=== PATIENT | male | born 1960 | race Caucasian/White ===

== ENCOUNTER 2016-11-28 11:55 | Observation (INO) ==
--- NOTE | 2016-11-28 12:52 | Emergency Department Note ---
Disposition Clinical Impression: Stroke Qualifiers: CVA mechanism: unspecified Qualified Code(s): I63.9 - Cerebral infarction, unspecified Disposition: Admitted As Inpatient Condition: Good General Adult HPI - General Chief complaint: ED Neuro Symptoms/Deficit Stated complaint: N/T to R side of Face Time Seen by Provider: 11/28/16 12:17 Source: patient, family Limitations: no limitations Nursing Notes Reviewed: Yes Vital Signs Reviewed: Yes - History of Present Illness Pain Scale: 0 - Related Data Home Medications Medication Instructions Recorded Confirmed Albuterol Sulfate [Albuterol 2 puff IH Q4HR PRN 04/15/15 11/28/16 Inhaler] Alprazolam [Xanax] 0.5 mg PO BID PRN 04/15/15 11/28/16 Cholecalciferol (Vitamin D3) 1,000 unit PO QAM 04/15/15 11/28/16 [Vitamin D] Gabapentin [Neurontin] 300 mg PO HS 04/15/15 11/28/16 Krill Oil/[place]-3/Dha/Epa [Fish 1 each PO DAILY 04/15/15 11/28/16 Oil with Krill Softgel] Lisinopril [Zestril] 5 mg PO QAM 04/15/15 11/28/16 Nitroglycerin [Nitrostat] 0.4 mg SL AD PRN 04/15/15 11/28/16 Tiotropium [Spiriva] 18 mcg IH QAM 04/15/15 11/28/16 Ubidecarenone [Co Q-10] 100 mg PO QAM 04/15/15 11/28/16 Albuterol Neb [AccuNeb] 0.63 mg IH Q6H PRN 11/28/16 11/28/16 Atorvastatin [Lipitor] 10 mg PO HS 11/28/16 11/28/16 Fenofibrate Nanocrystallized 145 mg PO DAILY 11/28/16 11/28/16 [Tricor] Fluticasone Propionate Nasal 2 spray NS DAILY 11/28/16 11/28/16 [Flonase] Insulin ASPART [NovoLOG] 35 unit SQ TIDWM 11/28/16 11/28/16 Meclizine HCl [Verticalm] 25 mg PO Q8H PRN 11/28/16 11/28/16 Multivitamin [Multi-Day Vitamins] 1 tab PO DAILY 11/28/16 11/28/16 Venlafaxine HCl [Venlafaxine HCl 37.5 mg PO DAILY 11/28/16 11/28/16 ER] Previous Rx's Medication Instructions Recorded Aspirin Enteric Coated [Aspirin EC] 81 mg PO DAILY #30 tablet.dr 04/19/15 Clopidogrel [Plavix] 75 mg PO QAM #30 tablet 04/19/15 Insulin DETEMIR [Levemir] 40 unit SQ BID #0 04/19/15 Isosorbide MONOnitrate (24 HR) 120 mg PO DAILY 30 Days 04/19/15 [Imdur] Metoprolol XL (24 HR) Succ [Toprol 100 mg PO DAILY 30 Days 04/19/15 XL] Pantoprazole Sodium [Protonix] 40 mg PO DAILY 30 Days 04/19/15 Ranolazine [Ranexa] 500 mg PO BID #60 tab.er.12h 04/19/15 Allergies Allergy/AdvReac Type Severity Reaction Status Date / Time atorvastatin [From Lipitor] AdvReac See Verified 04/15/15 13:06 Comments Past Medical History - Past Medical History Medical history: Reports: COPD, coronary artery disease, CVA, diabetes, hyperlipidemia, hypertension, myocardial infarction Surgical history: Reports: appendectomy, coronary bypass (CABG), herniorrhaphy, other Psychiatric history: Reports: no psych history - Social History Smoking Status: Never smoker Smokeless Tobacco Status: No Alcohol use: Reports: none Drug use: Reports: none Physical Exam - General Limitations: no limitations General appearance: alert, in no apparent distress Course Vital Signs Temperature 98.5 F 11/28/16 12:12 Pulse Rate 77 11/28/16 12:12 Respiratory Rate 16 11/28/16 12:12 Blood Pressure 143/80 11/28/16 12:12 O2 Sat by Pulse Oximetry 94 11/28/16 12:12 Temperature 98.5 F 11/28/16 12:12 Pulse Rate 74 11/28/16 13:36 Respiratory Rate 14 11/28/16 13:36 Blood Pressure 134/77 11/28/16 13:36 O2 Sat by Pulse Oximetry 94 11/28/16 13:36 Oxygen Delivery Oxygen Delivery Room Air Medical Decision Making - MDM Narrative Medical decision making narrative: I examined this patient and my medical decision-making was reviewed with the MINCEME[employer] MAKER/PA/Advanced Practice Nurse/Resident Physician. I agree with the documented findings, disposition and treatment plan as described except to the extent set forth below. Patient was seen and evaluated on arrival by Dr. Pimentel and myself, I agree with his evaluation and management plan, supervised the care of the patient outstay. Patient said 3 days of right-sided numbness and tingling to the face has a minimal droop there. He stays a TIA in the past. Question whether this is a TIA versus a palsy, he has no chest pain no other weakness no vision change no hearing changes no other neuro deficits. We will order a CT and labs and then reassess. He is in agreement with this plan. Head CT 11/28/16 12:18 IMPRESSION: No acute intracranial abnormality. D/ / Hardeep Scott MD / Hardeep Scott MD Interpreting Provider: Hardeep Scott MD 1305 hrs.: Bring him into the hospital for TIA workup. Now he is determining whether he wants stay in the hospital or not. We discussed risks and benefits of staying in the hospital versus going home he is reconsidering if he wants to stay or go home we have advised him to be admitted and have answered all his questions. 1400 hrs.: Patient's decided to stay in the hospital and hospitalist's accepted patient for admission. Right-sided facial weakness and numbness rule out TIA. - Lab Data Result diagrams: 11/28/16 12:59 11/28/16 12:59 Lab Results 11/28/16 11/28/16 Range/Units 12:59 12:59 WBC 7.4 (4.3-11.1) K/mcL RBC 5.79 H (4.19-5.50) M/mcL Hgb 16.0 (12.9-16.9) g/dL Hct 48.4 (37.5-50.1) % MCV 83.6 (83.0-100.0) fL MCH 27.6 L (28.0-33.3) pg MCHC 33.1 (31.6-35.5) g/dL RDW 13.2 (11.5-14.5) % Plt Count 193 (140-400) K/mcL MPV 10.6 (9.4-12.4) fL Immature Gran % 0.8 (0-4) % Seg Neutrophils % 61.3 % Lymphocytes % 26.9 % Monocytes % 6.0 % Eosinophils % 3.8 % Basophils % 1.2 % Neutrophils # 4.5 (1.6-8.9) K/mcL Lymphocytes # 2.0 (0.6-4.6) K/mcL Monocytes # 0.4 (0.0-1.3) K/mcL Eosinophils # 0.3 (0.0-0.6) K/mcL Basophils # 0.1 (0.0-0.2) K/mcL Immature Plt Fraction 4.9 (1.1-6.1) % Sodium 136 (136-145) mEq/L Potassium 4.6 H (3.5-4.5) mEq/L Chloride 102 (98-109) mEq/L Carbon Dioxide 22 (19-29) mEq/L BUN 19 (8-26) mg/dL Creatinine 1.27 H (0.72-1.25) mg/dL Est GFR ( Amer) > 60 (> 60) Est GFR (Non-Af Amer) 58 L (> 60) BUN/Creatinine Ratio 15 (6-26) Glucose 325 H (70-99) mg/dL Calculated Osmolality 297 (280-300) Calcium 9.3 (8.6-10.8) mg/dL
[2016-11-28 13:07] LABS: Basophils # 0.1 K/mcL (0.0-0.2); Basophils % 1.2 %; Eosinophils # 0.3 K/mcL (0.0-0.6); Eosinophils % 3.8 %; Hematocrit 48.4 % (37.5-50.1); Immature Granulocytes % 0.8 % (0-4); Immature Platelets 4.9 % (1.1-6.1); Lymphocytes % 26.9 %; Mean Corpuscular HGB Conc 33.1 g/dL (31.6-35.5); Mean Corpuscular Hemoglobin 27.6 pg (28.0-33.3); Mean Corpuscular Volume 83.6 fL (83.0-100.0); Mean Platelet Volume 10.6 fL (9.4-12.4); Monocytes # 0.4 K/mcL (0.0-1.3); Neutrophils # 4.5 K/mcL (1.6-8.9); Platelet Count 193 K/mcL (140-400); Red Blood Count 5.79 M/mcL (4.19-5.50); Red Cell Distribution Width 13.2 % (11.5-14.5); Segmented Neutrophils % 61.3 %
[2016-11-28 13:19] LABS: BUN/Creatinine Ratio 15 (6-26); Blood Urea Nitrogen 19 mg/dL (8-26); Calcium 9.3 mg/dL (8.6-10.8); Carbon Dioxide 22 mEq/L (19-29); Chloride 102 mEq/L (98-109); Glucose 325 mg/dL (70-99); Osmolality,Calculated 297 (280-300); Potassium 4.6 mEq/L (3.5-4.5); Sodium 136 mEq/L (136-145); eGFR For African Americans > 60 (> 60); eGFR For Non-African Americans 58 (> 60)
--- NOTE | 2016-11-28 13:21 | Emergency Department Note ---
Disposition Clinical Impression: Stroke Qualifiers: CVA mechanism: unspecified Qualified Code(s): I63.9 - Cerebral infarction, unspecified Disposition: Admitted As Inpatient Condition: Good Neuro HPI - General Chief Complaint: ED Neuro Symptoms/Deficit Stated Complaint: N/T to R side of Face Time Seen by Provider: 11/28/16 12:17 Source: patient, family Limitations: no limitations Nursing Notes Reviewed: Yes Vital Signs Reviewed: Yes - History of Present Illness HPI Narrative: Patient with past medical history of coronary artery disease, CVA, COPD, diabetes presents for evaluation of right-sided facial droop as well as right- sided facial numbness. Patient has had previous CVAs in the past that has left him with no deficits. Patient was being evaluated in the cardiology office by Dr. Morton when the symptoms were noted and the patient was transferred for further evaluation. Patient states symptoms started last night at approximately 5 PM. Patient is outside the window of any type of interventional management. - Related Data Home Medications: Home Medications Medication Instructions Recorded Confirmed Albuterol Sulfate [Albuterol 2 puff IH Q4HR PRN 04/15/15 11/28/16 Inhaler] Alprazolam [Xanax] 0.5 mg PO BID PRN 04/15/15 11/28/16 Cholecalciferol (Vitamin D3) 1,000 unit PO QAM 04/15/15 11/28/16 [Vitamin D] Gabapentin [Neurontin] 300 mg PO HS 04/15/15 11/28/16 Krill Oil/[place]-3/Dha/Epa [Fish 1 each PO DAILY 04/15/15 11/28/16 Oil with Krill Softgel] Lisinopril [Zestril] 5 mg PO QAM 04/15/15 11/28/16 Nitroglycerin [Nitrostat] 0.4 mg SL AD PRN 04/15/15 11/28/16 Tiotropium [Spiriva] 18 mcg IH QAM 04/15/15 11/28/16 Ubidecarenone [Co Q-10] 100 mg PO QAM 04/15/15 11/28/16 Albuterol Neb [AccuNeb] 0.63 mg IH Q6H PRN 11/28/16 11/28/16 Atorvastatin [Lipitor] 10 mg PO HS 11/28/16 11/28/16 Fenofibrate Nanocrystallized 145 mg PO DAILY 11/28/16 11/28/16 [Tricor] Fluticasone Propionate Nasal 2 spray NS DAILY 11/28/16 11/28/16 [Flonase] Insulin ASPART [NovoLOG] 35 unit SQ TIDWM 11/28/16 11/28/16 Meclizine HCl [Verticalm] 25 mg PO Q8H PRN 11/28/16 11/28/16 Multivitamin [Multi-Day Vitamins] 1 tab PO DAILY 11/28/16 11/28/16 Venlafaxine HCl [Venlafaxine HCl 37.5 mg PO DAILY 11/28/16 11/28/16 ER] Previous Rx's Medication Instructions Recorded Aspirin Enteric Coated [Aspirin EC] 81 mg PO DAILY #30 tablet. 04/19/15 Clopidogrel [Plavix] 75 mg PO QAM #30 tablet 04/19/15 Insulin DETEMIR [Levemir] 40 unit SQ BID #0 04/19/15 Isosorbide MONOnitrate (24 HR) 120 mg PO DAILY 30 Days 04/19/15 [Imdur] Metoprolol XL (24 HR) Succ [Toprol 100 mg PO DAILY 30 Days 04/19/15 XL] Pantoprazole Sodium [Protonix] 40 mg PO DAILY 30 Days 04/19/15 Ranolazine [Ranexa] 500 mg PO BID #60 tab.er.12h 04/19/15 Allergies/Adverse Reactions: Allergies Allergy/AdvReac Type Severity Reaction Status Date / Time atorvastatin [From Lipitor] AdvReac See Verified 04/15/15 13:06 Comments Review of Systems: CONSTITUTIONAL: No weight loss, fever, chills, weakness or fatigue. HEENT: Facial droop and numbness SKIN: No rash or itching. CARDIOVASCULAR: No chest pain, chest pressure or chest discomfort. No palpitations or edema. RESPIRATORY: No shortness of breath, cough or sputum. GASTROINTESTINAL: No anorexia, nausea, vomiting or diarrhea. No abdominal pain or blood. GENITOURINARY: No burning on urination or hematuria. NEUROLOGICAL: No headache, dizziness, syncope, paralysis, ataxia, numbness or tingling in the extremities. No change in bowel or bladder control. See HEENT MUSCULOSKELETAL: No muscle pain, back pain, joint pain or stiffness. HEMATOLOGIC: No bleeding or bruising. LYMPHATICS: No enlarged lymphnodes. PSYCHIATRIC: No change to depression or anxiety. ENDOCRINOLOGIC: No reports of heat or cold intolerance, Polyuria ALLERGIES: No history of asthma, hives, eczema or rhinitis. Past Medical History - Past Medical History Medical history: Reports: COPD, coronary artery disease, CVA, diabetes, hyperlipidemia, hypertension, myocardial infarction Surgical history: Reports: appendectomy, coronary bypass (CABG), herniorrhaphy, other Psychiatric history: Reports: no psych history - Social History Smoking Status: Never smoker Smokeless Tobacco Status: No Alcohol use: Reports: none Drug use: Reports: none Physical Exam General appearance: NAD, conversant Eyes: anicteric sclerae, moist conjunctivae; PERRL HENT: Atraumatic; oropharynx clear with moist mucous membranes and no mucosal ulcerations Neck: Normal inspection; Trachea midline; FROM, supple Lungs: CTA, with normal respiratory effort and no intercostal retractions CV: RRR, no MRGs Abdomen: Soft, non-tender; no rebound or gaurding Extremities: No peripheral edema or extremity lymphadenopathy Skin: Normal temperature; no rash, ulcers or lesions Psych: Appropriate mood and affect Neuro: alert and oriented to person, place and time see below for further neurologic evaluation - General Limitations: no limitations General appearance: alert, in no apparent distress - Expanded Neurological Exam Patient oriented to: Present: person, place, time Speech: Present: fluid speech Cranial nerves: EOM function (II, III, IV, ): Normal, facial sensation (V): Abnormal Right, facial palsy (VII): Abnormal Right, gag reflex (IX): Normal, spinal accessory function (XI): Normal, tongue deviation (XII): Normal Cerebellar function: finger to nose: Normal, heel to staley: Normal Cerebellar function: normal gait Motor strength - LUE: 5/5 Motor strength - RUE: 5/5 Motor strength - LLE: 5/5 Motor strength - RLE: 5/5 Sensory exam upper extremity: light touch: Normal Sensory exam lower extremity: light touch: Normal Coma Scale Eye Opening: Spontaneous Coma Scale Motor Response: Obeys Commands Coma Scale Verbal Response: Oriented Coma Scale Total: 15 Course - Reevaluation(s) Reevaluation #1: Patient has no acute hemorrhage on CT. Blood work otherwise unremarkable except for elevated glucose. Patient has not taken any of his dictations today - Consultations Consultation #1: Dr. Mendoza called to inform us that he was sending the patient over from his office for strokelike symptoms that started at 5 PM last night. Consultation #2: Discussed with hospitalist Dr. Rios. Pt accepted for admission. Vital Signs Temperature 98.5 F 11/28/16 12:12 Pulse Rate 77 11/28/16 12:12 Respiratory Rate 16 11/28/16 12:12 Blood Pressure 143/80 11/28/16 12:12 O2 Sat by Pulse Oximetry 94 11/28/16 12:12 Temperature 98.5 F 11/28/16 12:12 Pulse Rate 74 11/28/16 13:36 Respiratory Rate 14 11/28/16 13:36 Blood Pressure 134/77 11/28/16 13:36 O2 Sat by Pulse Oximetry 94 11/28/16 13:36 Oxygen Delivery Oxygen Delivery Room Air Neuro Symptoms/Deficit - Medical Records Medical records reviewed: Yes I reviewed the patient's medical records. - Lab Data Lab results reviewed: Yes I reviewed the patient's lab results. Result diagrams: 11/28/16 12:59 11/28/16 12:59 Lab Results 11/28/16 11/28/16 Range/Units 12:59 12:59 WBC 7.4 (4.3-11.1) K/mcL RBC 5.79 H (4.19-5.50) M/mcL Hgb 16.0 (12.9-16.9) g/dL Hct 48.4 (37.5-50.1) % MCV 83.6 (83.0-100.0) fL MCH 27.6 L (28.0-33.3) pg MCHC 33.1 (31.6-35.5) g/dL RDW 13.2 (11.5-14.5) % Plt Count 193 (140-400) K/mcL MPV 10.6 (9.4-12.4) fL Immature Gran % 0.8 (0-4) % Seg Neutrophils % 61.3 % Lymphocytes % 26.9 % Monocytes % 6.0 % Eosinophils % 3.8 % Basophils % 1.2 % Neutrophils # 4.5 (1.6-8.9) K/mcL Lymphocytes # 2.0 (0.6-4.6) K/mcL Monocytes # 0.4 (0.0-1.3) K/mcL Eosinophils # 0.3 (0.0-0.6) K/mcL Basophils # 0.1 (0.0-0.2) K/mcL Immature Plt Fraction 4.9 (1.1-6.1) % Sodium 136 (136-145) mEq/L Potassium 4.6 H (3.5-4.5) mEq/L Chloride 102 (98-109) mEq/L Carbon Dioxide 22 (19-29) mEq/L BUN 19 (8-26) mg/dL Creatinine 1.27 H (0.72-1.25) mg/dL Est GFR ( Amer) > 60 (> 60) Est GFR (Non-Af Amer) 58 L (> 60) BUN/Creatinine Ratio 15 (6-26) Glucose 325 H (70-99) mg/dL Calculated Osmolality 297 (280-300) Calcium 9.3 (8.6-10.8) mg/dL - Radiology Data Radiology results reviewed: Yes I reviewed the patient's radiology results. - EKG Data EKG attestation: Yes I reviewed and interpreted this EKG. EKG results narrative: EKG shows sinus rhythm with ventricular rate of 71 bpm. [place] interval 173. QRS 99. QTC 400. Patient has no significant ST elevations or depressions. Patient has some nonspecific T waves in the anterior leads that have changed since 04/19/15. TPA Checklist - LKW: 3-4.5 hrs Add. Contraindications Patient/family understanding: The patient/family members have been counseled and understood the risk, benefit , and alternatives of treatment.
[2016-11-28] MEDS ORDERED: Naloxone 0.4 MG/ML INJ IVP PRN (13:47)
[2016-11-28] MEDS ORDERED: D5% in Water 1,000 ML IVC PRN (13:54)
[2016-11-28] MEDS ORDERED: Dextrose Gel 15 GM PO PRN ×2 (13:54)
[2016-11-28] MEDS ORDERED: *HR* Dextrose 50 % in Water (Syg) 50 ML SYRINGE IVP PRN (13:54)
[2016-11-28] MEDS ORDERED: Albuterol Neb 0.63 MG/3 ML VIAL IH PRN (14:22)
[2016-11-28] MEDS ORDERED: ALPRAZolam 0.5 MG TABLET PO PRN (14:22)
[2016-11-28 14:30] LABS: Hemoglobin A1C 11.9 %
--- NOTE | 2016-11-28 14:30 | Event Note ---
Date of Encounter: 11/28/16 Time of Encounter: 14:28 1. Possible acute ischemic CVA versus TIA, right facial droop has improved, numbness remains Continue aspirin and Plavix, order MRI of the brain, echocardiogram, carotid ultrasound Check lipid panel, continue statin Neurology consult, neuro checks, fall precautions. Permissive hypertension 2. Upper thoracic cervical soft tissue mass May order MRI 3. Diabetes type 2, continue insulin sliding scale 4. CAD, continue aspirin and Plavix Admitted for observation, time spent on this admission 40 minutes. High risk for CVA H and P to be written by ELSA Guzman
[2016-11-28 14:38] LABS: Thyroid Stimulating Hormone 1.274 mcIU/mL (0.350-4.840)
--- NOTE | 2016-11-28 14:42 | Internal Med History&Physical ---
<Julian Nugent H - Last Filed: 11/28/16 15:23> Date of Encounter: 11/28/16 Internal Medicine - H&P: HPI History of present illness: Mr. Collazo is a 56 year old male Internal Medicine - H&P: Meds Albuterol Sulfate [Albuterol Inhaler] 2 puff IH Q4HR PRN 04/15/15 [History] Alprazolam [Xanax] 0.5 mg PO BID PRN 04/15/15 [History] Cholecalciferol (Vitamin D3) [Vitamin D] 1,000 unit PO QAM 04/15/15 [History] Gabapentin [Neurontin] 300 mg PO HS 04/15/15 [History] Krill Oil/[place]-3/Dha/Epa [Fish Oil with Krill Softgel] 1 each PO DAILY [History] Lisinopril [Zestril] 5 mg PO QAM 04/15/15 [History] Nitroglycerin [Nitrostat] 0.4 mg SL AD PRN 04/15/15 [History] Tiotropium [Spiriva] 18 mcg IH QAM 04/15/15 [History] Ubidecarenone [Co Q-10] 100 mg PO QAM 04/15/15 [History] Aspirin Enteric Coated [Aspirin EC] 81 mg PO DAILY #30 tablet.dr 04/19/15 [Rx] Clopidogrel [Plavix] 75 mg PO QAM #30 tablet 04/19/15 [Rx] Insulin DETEMIR [Levemir] 40 unit SQ BID #0 04/19/15 [Rx] Isosorbide MONOnitrate (24 HR) [Imdur] 120 mg PO DAILY 30 Days 04/19/15 [Rx] Metoprolol XL (24 HR) Succ [Toprol XL] 100 mg PO DAILY 30 Days 04/19/15 [Rx] Pantoprazole Sodium [Protonix] 40 mg PO DAILY 30 Days 04/19/15 [Rx] Ranolazine [Ranexa] 500 mg PO BID #60 tab.er.12h 04/19/15 [Rx] Albuterol Neb [AccuNeb] 0.63 mg IH Q6H PRN 11/28/16 [History] Atorvastatin [Lipitor] 10 mg PO HS 11/28/16 [History] Fenofibrate Nanocrystallized [Tricor] 145 mg PO DAILY 11/28/16 [History] Fluticasone Propionate Nasal [Flonase] 2 spray NS DAILY 11/28/16 [History] Insulin ASPART [NovoLOG] 35 unit SQ TIDWM 11/28/16 [History] Meclizine HCl [Verticalm] 25 mg PO Q8H PRN 11/28/16 [History] Multivitamin [Multi-Day Vitamins] 1 tab PO DAILY 11/28/16 [History] Venlafaxine HCl [Venlafaxine HCl ER] 37.5 mg PO DAILY 11/28/16 [History] Allergies atorvastatin [From Lipitor] Adverse Reaction (Verified 04/15/15 13:06) See Comments Patient states he hurts all over and is achy after taking this. All Systems PM: A 10-system review of systems was performed and is negative for pertinent findings except as documented above in the HPI. - Constitutional Vitals: Temp Pulse Resp BP Pulse Ox 98.5 F 74 14 133/84 94 11/28/16 12:12 11/28/16 13:36 11/28/16 14:50 11/28/16 14:50 11/28/16 13:36 Internal Med - H&P Results - Labs CBC & Chem 7: 11/28/16 12:59 11/28/16 12:59 - Attending Attestation 1. Possible acute ischemic CVA versus TIA, right facial droop has improved, numbness remains Continue aspirin and Plavix, order MRI of the brain, echocardiogram, carotid ultrasound Check lipid panel, continue statin Neurology consult, neuro checks, fall precautions. Permissive hypertension 2. Upper thoracic cervical soft tissue mass Radiology recommended an ultrasound 3. Diabetes type 2, continue insulin sliding scale 4. CAD, continue aspirin and Plavix Admitted for observation, time spent on this admission 40 minutes. High risk for CVA I examined this patient and my medical decision-making was reviewed with the [employer] B[employer]DOZER OPERATOR/PA/Advanced Practice Nurse/Resident Physician. I agree with the documented findings, disposition and treatment plan as described except to the extent set forth below. <Leigh Guzman - Last Filed: 11/28/16 15:40> Date of Encounter: 11/28/16 Time of Encounter: 14:36 Assessment and Plan (1) Stroke Current visit: Yes Status: Acute Per history with residual right side facial numbness. Now presents with worsening right facial paresthesia with facial droop. Head CT negative. Continue home Plavix, statin (does not tolerate high intensity statin). Increased ASA to full dose. Brain MRI, echo, carotids, Hgb A1c, LDL and TSH pending. Neurology consulted Qualifiers: CVA mechanism: unspecified Qualified Code(s): I63.9 - Cerebral infarction, unspecified (2) HTN (hypertension) Current visit: No Status: Chronic per hx. Hold home BP medications. Allow for permissive HTN, resume BP medications 11/29 or if MRI negative. Qualifiers: Hypertension type: essential hypertension Qualified Code(s): I10 - Essential (primary) hypertension (3) Soft tissue mass Current visit: Yes Status: Acute to thoracic, cervical area for one month prior to admission. Etiology unknown. No obvious infection. Discussed with Radiology and will check US (4) CKD (chronic kidney disease) stage 3, GFR 30-59 ml/min Current visit: Yes Status: Acute per hx.Cr 1.2 which appears improved from baseline. Intermittently monitor (5) Diabetes Current visit: No Status: Chronic per hx. Control unknown. Cont home long acting, add SSI. Monitor blood sugars and titrate PRN. Hgb A1c pending Qualifiers: Diabetes mellitus type: type 2 Diabetes mellitus complication status: with circulatory complication Diabetes mellitus complication detail: with other circulatory complications Diabetes mellitus terminal clerk insulin use: with terminal clerk use Qualified Code(s): E11.59 - Type 2 diabetes mellitus with other circulatory complications; Z79.4 - termination clerk (current) use of insulin (6) DVT prophylaxis Current visit: No Status: Acute Heparin Internal Medicine - H&P: HPI Chief complaint: right facial numbness Admitted From: Home History of present illness: Mr. Collazo is a 56 year old male past medical history CVA, CAD, diabetes, hypertension, and CKD who presented to [facility] on 11/28/26 with complaints of worsening right racial numbness and tingling. He was placed in observation for CVA rule out. Information obtained from chart review and patient report. Patient says he has residual right side facial numbness from previous CVA. Says he noticed worsening numbness sensation last night with facial droop. No slurred speech or extremity weakness. On ny exam the increased numbness is till present, no head ache. He also reports large area of swelling to upper back. Says area started over a month ago and is spreading. No evidence of infection he does report pain to area at times. No chest pain no shortness of breath abdominal pain no nausea vomiting or diarrhea Past Med Surg Social Fam HX - Past Medical History Medical history: COPD, coronary artery disease, CVA, diabetes, hyperlipidemia, hypertension, myocardial infarction Psychiatric history: no psych history - Past Surgical History Surgical History: appendectomy, coronary bypass (CABG), herniorrhaphy, other - Social History Smoking Status: Never smoker Smokeless Tobacco Status: No Alcohol use: none Drug use: none - Family History Mother Hx Family Cardiac Disorders: Yes Father Hx Family Cardiac Disorders: Yes All Systems PM: A 10-system review of systems was performed and is negative for pertinent findings except as documented above in the HPI. - Constitutional Constitutional: no chills, no fever(s), no night sweats - EENT Eyes: no change in vision, no discharge, no pain, no photophobia Ears: no ear discharge, no ear pain, no tinnitus Nose, mouth and throat: no dysphagia, no nasal discharge, no neck pain, no sore throat - Cardiovascular Cardiovascular ROS IM: no chest pain, no diaphoresis, no dyspnea, no lightheadedness, no palpitations, no syncope - Respiratory Respiratory: no cough, no dyspnea, no wheezing, no excessive phlegm production - Gastrointestinal Gastrointestinal: no abdominal pain, no diarrhea, no hematemesis, no hematochezia, no melena, no nausea, no vomiting - Musculoskeletal Musculoskeletal ROS IM: no numbness, no tingling - Integumentary Integumentary IM: no rash, no unusual bruising - Neurological Neurological ROS: numbness, no confusion, no convulsions, no focal weakness, no tingling, no tremor(s) - Hematologic/Lymphatic Hematologic/Lymphatic: no easy bruising - Constitutional Vitals: Temp Pulse Resp BP Pulse Ox 98.5 F 74 14 134/77 94 11/28/16 12:12 11/28/16 13:36 11/28/16 13:36 11/28/16 13:36 11/28/16 13:36 General appearance: Present: A&O X 3, no acute distress - Head Head exam: Present: atraumatic, normocephalic - Eye Eye exam: Present: PERRL, conjuntiva pink, sclera anicteric Pupils: Present: PERRL - Neck Neck exam general surgery: Present: supple, trachea midline. Absent: lymphadenopathy Additional comments: area of hard swelling that extends from middle of scapula extending to right side of neck. No redness, no drainage - Respiratory Respiratory exam: Present: CTAB. Absent: accessory muscle use, rales, rhonchi, wheezes - Cardiovascular Cardiovascular exam: Present: RRR, +S1, +S2. Absent: diastolic murmur, gallop, rubs, systolic murmur - GI/Abdominal GI/Abdominal exam: Present: normal bowel sounds, soft, no peritoneal signs. Absent: distended, tenderness - Extremities Exam Extremities exam: Present: warm, radial pulses palpable and symetrical. Absent : calf tenderness, cyanotic, pedal edema - Neurological Exam Neurological exam: Present: alert, CN II-XII intact, oriented X3, no focal deficits. Absent: pronater drift, facial droop, speech deficit - Skin Skin exam: Present: dry, intact Internal Med - H&P Results - Labs CBC & Chem 7: 11/28/16 12:59 11/28/16 12:59
--- NOTE | 2016-11-28 15:58 | Neurology - Consult Note ---
Date of Encounter: 11/28/16 Time of Encounter: 15:55 Assessment and Plan (1) Numbness and tingling of right face Current Visit: Yes Status: Acute This gentleman has ongoing complaints of right facial numbness. I do not identify weakness of the right face. In the speech abnormalities. His neurologic examination is otherwise unremarkable. Certainly however he has had a previous left thalamic stroke and has risk factors for stroke. His blood pressure was not significantly elevated however his glucose was elevated at 325. Carotid duplex Doppler study repeat MRI scan of the brain and echocardiogram are YET PENDING. AT THIS TIME I RECOMMEND MAINTAINING THE ASPIRIN AND PLAVIX COMBINATION pending test results. Implement a stroke protocol orders. I did speak with patient about following up with his primary care provider after discharge to work on strict control of his diabetes. I recommend ongoing statins and management of blood pressure. The documentation in the history of HPI and plan were at least partially created by [employer] voice recognition technology by Dr. Smith. Errors in grammar, wording or other phrases may exist. If errors are found after the documentation signed, they will be addressed individually in the addendum section of this document when appropriate. History of Present Illness HPI: Mr. Collazo is a 56 year old male seen for neurologic evaluation secondary to strokelike symptoms. He states that yesterday around 5:30 in the evening he had been mowing grass and we have blacking. He states that he came in the house and sat down about 30 minutes later the symptoms began. He denied headache denied speech difficulties denied any weakness of the right arm or leg. However he did not seek medical attention until today. He complains of some residual numbness of the right face from a previous stroke in 2013. However he still has complaints of right facial numbness and feels as though his right face is drooping. His vital signs were stable upon admission. His glucose however was elevated at 325. He is a known diabetic and he admits that his glucose usually runs in the 200s. It seems that compliance may be an issue. Acute CT scan of the head was negative. MRI scan of the brain which was completed in 2013 does reveal a left thalamic infarct. Carotid buttocks Doppler study, echocardiogram, and MRI of the head are yet pending. He currently takes a combination of Plavix and aspirin. Past Med Surg Social Fam HX - Past Medical History Medical history: COPD, coronary artery disease, CVA, diabetes, hyperlipidemia, hypertension, myocardial infarction Psychiatric history: no psych history - Past Surgical History Surgical History: appendectomy, coronary bypass (CABG), herniorrhaphy, other - Social History Smoking Status: Never smoker Smokeless Tobacco Status: No Alcohol use: none Drug use: none - Family History Mother Hx Family Cardiac Disorders: Yes Father Hx Family Cardiac Disorders: Yes Medications and Allergies Albuterol Sulfate [Albuterol Inhaler] 2 puff IH Q4HR PRN 04/15/15 [History] Alprazolam [Xanax] 0.5 mg PO BID PRN 04/15/15 [History] Cholecalciferol (Vitamin D3) [Vitamin D] 1,000 unit PO QAM 04/15/15 [History] Gabapentin [Neurontin] 300 mg PO HS 04/15/15 [History] Krill Oil/Walton-3/Dha/Epa [Fish Oil with Krill Softgel] 1 each PO DAILY [History] Lisinopril [Zestril] 5 mg PO QAM 04/15/15 [History] Nitroglycerin [Nitrostat] 0.4 mg SL AD PRN 04/15/15 [History] Tiotropium [Spiriva] 18 mcg IH QAM 04/15/15 [History] Ubidecarenone [Co Q-10] 100 mg PO QAM 04/15/15 [History] Aspirin Enteric Coated [Aspirin EC] 81 mg PO DAILY #30 tablet. 04/19/15 [Rx] Clopidogrel [Plavix] 75 mg PO QAM #30 tablet 04/19/15 [Rx] Insulin DETEMIR [Levemir] 40 unit SQ BID #0 04/19/15 [Rx] Isosorbide MONOnitrate (24 HR) [Imdur] 120 mg PO DAILY 30 Days 04/19/15 [Rx] Metoprolol XL (24 HR) Succ [Toprol XL] 100 mg PO DAILY 30 Days 04/19/15 [Rx] Pantoprazole Sodium [Protonix] 40 mg PO DAILY 30 Days 04/19/15 [Rx] Ranolazine [Ranexa] 500 mg PO BID #60 tab.er.12h 04/19/15 [Rx] Albuterol Neb [AccuNeb] 0.63 mg IH Q6H PRN 11/28/16 [History] Atorvastatin [Lipitor] 10 mg PO HS 11/28/16 [History] Fenofibrate Nanocrystallized [Tricor] 145 mg PO DAILY 11/28/16 [History] Fluticasone Propionate Nasal [Flonase] 2 spray NS DAILY 11/28/16 [History] Insulin ASPART [NovoLOG] 35 unit SQ TIDWM 11/28/16 [History] Meclizine HCl [Verticalm] 25 mg PO Q8H PRN 11/28/16 [History] Multivitamin [Multi-Day Vitamins] 1 tab PO DAILY 11/28/16 [History] Venlafaxine HCl [Venlafaxine HCl ER] 37.5 mg PO DAILY 11/28/16 [History] Allergies atorvastatin [From Lipitor] Adverse Reaction (Verified 04/15/15 13:06) See Comments Patient states he hurts all over and is achy after taking this. All Systems: A 10-system review of systems was performed and is negative for pertinent findings except as documented above in the HPI. Review of Systems: Temporal review of systems is consistent with a history of present illness and otherwise negative. Physical Examination - Vital Signs Vital Signs: Initial Vital Signs Temp Pulse Resp BP Pulse Ox 98.5 F 77 16 143/80 94 11/28/16 12:12 11/28/16 12:12 11/28/16 12:12 11/28/16 12:12 11/28/16 12:12 - Neurologic Detailed motor examination: grossly full strength in all extremities, full strength in all major muscle groups Motor examination - right side: 5/5: deltoids, biceps, triceps, wrist flexion, wrist extension, vertical boring mill operator, hip flexors, tibialis Anterior, quadriceps, toe extension (EHL), plantarflexion Motor examination - left side: 5/5: deltoids, biceps, triceps, wrist flexion, wrist extension, hip flexors, vertical boring mill operator, quadriceps, tibialis Anterior, toe extension (EHL), plantarflexion Detailed sensory examination: other (Right facial hypoesthesia.) Reflex and gait examination: intact Reflexes: Biceps: 1+, Triceps: 1+, Brachioradialis: 1+, Patella: 1+, Achilles: 0 Mental Status Examination: awake, alert, oriented to person, oriented to place, oriented to time, follows commands appropriately, answers questions appropriately, no agnosia, no aphasia, no aproxia Cranial nerve examination: PERRL, EOMI, visual hunter intact, corneal reflexes brisk symmetrically, sensory to face intact, no facial asymmetry is present, no dysarthria, hearing is intact symmetrically, soft palate elevates bilaterally upon phonation, gag reflex intact, flexes SCM and trapezius muscles symmetrically with full power, tongue protrudes midline, no atrophy or facial fasiculations present Cranial Nerve Exam: facial hypesthesia: Right Cerebellar examination: no dysmetria, performs finger to nose and heel to staley symmetrically without ataxia, no gait ataxia, no truncal ataxia, no difficulty with rapid alternating movements Results - Laboratory Findings CBC and BMP: 11/28/16 12:59 11/28/16 12:59 Abnormal lab findings: Abnormal lab results RBC 5.79 M/mcL (4.19-5.50) H 11/28/16 12:59 MCH 27.6 pg (28.0-33.3) L 11/28/16 12:59 Potassium 4.6 mEq/L (3.5-4.5) H 11/28/16 12:59 Creatinine 1.27 mg/dL (0.72-1.25) H 11/28/16 12:59 Est GFR (Non-Af Amer) 58 (> 60) L 11/28/16 12:59 Glucose 325 mg/dL (70-99) H 11/28/16 12:59 Hemoglobin A1c 11.9 % (-5.6) H 11/28/16 13:03 Consult Discharge Plan - Plan Referrals: Chele Cowan DO [Primary Care Provider] -
--- NOTE | 2016-11-28 16:31 | Electrocardiograph Report ---
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
[2016-11-28] MEDS: Insulin LISPRO 300 UNITS/3 ML VIAL SQ SCH (19:20)
[2016-11-28] MEDS: Insulin DETEMIR 100 UNIT/ML X5UNITS SQ SCH (20:43)
[2016-11-28] MEDS: Aspirin Enteric Coated 325 MG Tablet PO SCH (20:44)
[2016-11-28] MEDS: Ranolazine 500 MG TAB.ER.12H PO SCH (20:44)
[2016-11-28] MEDS ORDERED: Gabapentin 300 MG CAPSULE PO SCH (21:00)
[2016-11-28] MEDS ORDERED: Insulin LISPRO 300 UNITS/3 ML VIAL SQ SCH (21:00)
[2016-11-28] MEDS ORDERED: NON-FORMULARY MEDICATION 1 EACH EACH (Insulin Detemir 40 UNIT) SQ SCH (21:00)
[2016-11-28] MEDS: *HR* Heparin 5,000 UNIT/ML VIAL SQ SCH (22:10)
[2016-11-29 04:52] LABS: Basophils # 0.1 K/mcL (0.0-0.2); Basophils % 1.2 %; Eosinophils # 0.3 K/mcL (0.0-0.6); Eosinophils % 4.5 %; Hematocrit 46.1 % (37.5-50.1); Hemoglobin 15.5 g/dL (12.9-16.9); Immature Granulocytes % 0.6 % (0-4); Lymphocytes # 2.2 K/mcL (0.6-4.6); Lymphocytes % 32.6 %; Mean Corpuscular HGB Conc 33.6 g/dL (31.6-35.5); Mean Corpuscular Volume 83.4 fL (83.0-100.0); Mean Platelet Volume 10.9 fL (9.4-12.4); Monocytes # 0.5 K/mcL (0.0-1.3); Monocytes % 6.8 %; Neutrophils # 3.7 K/mcL (1.6-8.9); Platelet Count 192 K/mcL (140-400); Red Blood Count 5.53 M/mcL (4.19-5.50); Red Cell Distribution Width 13.2 % (11.5-14.5); Segmented Neutrophils % 54.3 %
[2016-11-29 05:06] LABS: Alanine Aminotransferase 30 Units/L (0-55); Albumin 3.4 g/dL (3.5-5.0); Albumin/Globulin Ratio 0.9 (1.1-2.2); Alkaline Phosphatase 115 Units/L (38-126); Aspartate Amino Transferase 22 Units/L (5-34); BUN/Creatinine Ratio 13 (6-26); Bilirubin,Total 0.5 mg/dL (0.2-1.2); Blood Urea Nitrogen 17 mg/dL (8-26); Calcium 9.4 mg/dL (8.6-10.8); Carbon Dioxide 24 mEq/L (19-29); Chloride 102 mEq/L (98-109); Chol/HDL Ratio 14.5 (0-4.9); Cholesterol 305 mg/dL (< 200); Globulin 3.6 g/dL (2.4-3.5); Glucose 302 mg/dL (70-99); HDL Cholesterol 21 mg/dL (40-59); Osmolality,Calculated 297 (280-300); Potassium 3.8 mEq/L (3.5-4.5); Sodium 137 mEq/L (136-145); Triglycerides 1325 mg/dL (< 150); eGFR For African Americans > 60 (> 60); eGFR For Non-African Americans 56 (> 60)
[2016-11-29] MEDS: *HR* Heparin 5,000 UNIT/ML VIAL SQ SCH (05:10)
--- NOTE | 2016-11-29 07:06 | Neurology Progress Note ---
Date of Encounter: 11/29/16 Time of Encounter: 07:03 Assessment and Plan (1) Numbness and tingling of right face Current Visit: Yes Status: Acute At this juncture Mr. Collazo's neurologic examination remains stable and unchanged. Not able to identify evidence of any acute cerebral infarct. Perhaps this experienced a TIA. His diabetes is poorly controlled and he does not seem to be very compliant. His blood pressure is also mildly elevated. I did stress to medical compliance with this gentleman which includes aggressive management of his diabetes. I would recommend simply maintain the Plavix and the aspirin at the current dosages, unless the echocardiogram reveals evidence to suggest otherwise. I will reevaluate him at your request. The documentation in the history of HPI and plan were at least partially created by [employer] recognition technology by Dr. Smith. Errors in grammar, wording or other phrases may exist. If errors are found after the documentation signed, they will be addressed individually in the addendum section of this document when appropriate. Subjective Interval history: Instructions were reviewed patient was seen and examined. Upon my entering the room, the patient was sleeping. He was easily aroused to voice. He denies any additional right facial numbness, speech difficulty, weakness of the right upper and lower extremity. The carotid duplex Doppler study reveals nonstenotic plaquing at the left bifurcation. Echocardiogram is pending. Objective - Constitutional Vitals: Temp Pulse Resp BP Pulse Ox 99.0 F 92 16 157/92 91 11/29/16 03:51 11/29/16 04:00 11/29/16 04:00 11/29/16 04:00 11/29/16 03:51 - Neurological Exam Motor Examination: Present: grossly full strength in all extremities, full strength in all major muscle groups Motor examination - right side: 5/5: deltoids, biceps, triceps, wrist flexion, wrist extension, manager demand, hip flexors, tibialis Anterior, quadriceps, toe extension (EHL), plantarflexion Motor examination - left side: 5/5: deltoids, biceps, triceps, wrist flexion, wrist extension, hip flexors, manager demand, quadriceps, tibialis Anterior, toe extension (EHL), plantarflexion Sensation intact: Present: other (Right facial hypoesthesia.) Reflex and gait examination: intact Mental Status Examination: Present: awake, alert, oriented to person, oriented to place, oriented to time, follows commands appropriately, answers questions appropriately, no agnosia, no aphasia, no aproxia Cranial nerve examination: Present: PERRL, EOMI, visual hunter intact, corneal reflexes brisk symmetrically, sensory to face intact, no facial asymmetry is present, no dysarthria, hearing is intact symmetrically, soft palate elevates bilaterally upon phonation, gag reflex intact, flexes SCM and trapezius muscles symmetrically with full power, tongue protrudes midline, no atrophy or facial fasiculations present Cranial Nerve Exam: facial hypesthesia: Right Cerebellar examination: Present: no dysmetria, performs finger to nose and heel to staley symmetrically without ataxia, no gait ataxia, no truncal ataxia, no difficulty with rapid alternating movements Results - Laboratory Findings CBC and BMP: 11/29/16 03:37 11/29/16 03:37 Abnormal lab findings: Abnormal lab results RBC 5.53 M/mcL (4.19-5.50) H 11/29/16 03:37 Creatinine 1.31 mg/dL (0.72-1.25) H 11/29/16 03:37 Est GFR (Non-Af Amer) 56 (> 60) L 11/29/16 03:37 Glucose 302 mg/dL (70-99) H 11/29/16 03:37 POC Glucose 261 (58-89) H 11/28/16 15:53 Hemoglobin A1c 11.9 % (-5.6) H 11/28/16 13:03 Albumin 3.4 g/dL (3.5-5.0) L 11/29/16 03:37 Globulin 3.6 g/dL (2.4-3.5) H 11/29/16 03:37 Albumin/Globulin Ratio 0.9 (1.1-2.2) L 11/29/16 03:37 Triglycerides 1325 mg/dL (< 150) H 11/29/16 03:37 Cholesterol 305 mg/dL (< 200) H 11/29/16 03:37 HDL Cholesterol 21 mg/dL (40-59) L 11/29/16 03:37 Cholesterol/HDL Ratio 14.5 (0-4.9) H 11/29/16 03:37 Consult Discharge Plan - Plan Referrals: Chele Cowan DO [Primary Care Provider] -
--- NOTE | 2016-11-29 07:55 | ECHO - Doppler Report ---
Echo with Saline Contrast Name: Geovani Collazo Date of Study: 11/28/2016 Date: 1960 Ht: 68.0 in Medical Record#: [id number] Age: 56 Wt: 207.0 lb Gender: Male BSA: 2.07 Order #: [id number] Location: [facility] Room #: 2NE32 Reading Physician: Reza Mendoza MD, [facility] Fixed Income Manager: Jazmine Krause RDCS Ordering Physician: Leigh Guzman CNP Primary Physician: Chele Cowan DO Indications: Transient Ischemic Attack Impressions: Mild LV systolic dysfunction, LVEF 40-45%. There is mild global hypokinesis with regional variations. Mild concentric left ventricular hypertrophy. Mild left ventricular diastolic dysfunction. Normal right ventricular size and function. Agitated saline contrast was attempted, but was poor in quality. Cannot assess for intracardiac shunting on this study. No significant valvular dysfunction. Unable to estimate RVSP due to lack of TR jet. Left Ventricular Wall Motion: Rest Echo Findings The apex, apical inferior, mid inferior, basal inferior, apical anterior, mid anterior, basal anterior, apical septal, mid inferior septal, basal inferior septal, apical lateral, mid anterior lateral, basal anterior lateral, mid anterior septal, mid inferior lateral, basal anterior septal and basal inferior lateral yañez were hypokinetic. Findings: Study Quality * Suboptimal echo windows. ECG Findings * Normal sinus rhythm. Left Ventricle * Mild LV systolic dysfunction, LVEF 40-45%. There is mild global hypokinesis with regional variations. * Normal LV chamber size. * Mild concentric left ventricular hypertrophy. * Mild left ventricular diastolic dysfunction. Right Ventricle * Normal right ventricular size and function. Left Atrium * Normal left atrial size. Right Atrium * Normal right atrial size. Interatrial Septum * Agitated saline contrast was attempted, but was poor in quality. Cannot assess for intracardiac shunting on this study. Aorta * Normally sized aortic root. Pericardium * There is no pericardial effusion present. IVC * The IVC is not well evaluated. Aortic Valve * Trileaflet aortic valve. * Mildly sclerotic aortic valve leaflets. * Normal aortic valve function. Mitral Valve * Normal mitral valve structure. * Normal mitral valve function. Tricuspid Valve * Tricuspid valve not well visualized. * Normal tricuspid valve function. * Unable to estimate RVSP due to lack of TR jet. Pulmonic Valve * Normal pulmonic valve structure. * Normal pulmonic valve function. History Hypertension Diabetes Hypercholesteremia Family History of CAD History of CAD/PTCA Myocardial Infarction Coronary Artery Bypass Graft Congestive Heart Failure 04/19/2015 a Previous Echo was performed. Contrast: Agitated saline 20 ml. Measurements: BP: 140/ 83 2D Normal Values RVIDd: 3.06 cm IVSd: 1.20 cm 0.6 - 1.0 cm LVIDd: 5.50 cm 3.7 - 5.6 cm LVPWd: 1.10 cm 0.6 - 1.1 cm LVIDs: 4.30 cm 1.5 - 3.6 cm AO: 3.10 cm < 4.0 cm LA volume: 44 Mitral Valve Peak E:.80 m/sec Peak A:.96 m/sec E/A Ratio:0.8 Peak E' Lat [place]:6.22 cm/s Peak E' Med [place]:5.47 cm/s E/E' Lat Ratio:12.8 E/E' Med Ratio:14.6 Updated by Reza Mendoza MD, [facility] on 11/29/2016 7:48:04 AM electronically signed on 11/29/2016 7:48:49 AM with status of Final Wall Motion Carter: 1=Normal, 2=Hypokinesis, 3=Akinesis, 4=Dyskinesis, 5=Aneurysmal, 6=Hyperkinetic, X=Not Visualized (Blank)=Missing
[2016-11-29] MEDS: Aspirin Enteric Coated 325 MG Tablet PO SCH (08:35)
[2016-11-29] MEDS: Ranolazine 500 MG TAB.ER.12H PO SCH (08:35)
[2016-11-29] MEDS: Insulin DETEMIR 100 UNIT/ML X5UNITS SQ SCH (08:36)
[2016-11-29] MEDS: Insulin LISPRO 300 UNITS/3 ML VIAL SQ SCH ×2 (08:36→12:29)
[2016-11-29] MEDS ORDERED: Isosorbide MONOnitrate (24 HR) 60 MG TAB.ER.24H PO SCH (09:00)
[2016-11-29] MEDS ORDERED: Metoprolol XL (24 HR) Succ 50 MG TAB.ER.24H PO SCH (09:00)
[2016-11-29] MEDS ORDERED: Tiotropium 18 MCG inhalation IH SCH (09:00)
[2016-11-29] MEDS ORDERED: Venlafaxine XR (24 HR) 37.5 MG CAP.ER.24H PO SCH (09:00)
[2016-11-29 10:52] VITALS: BP 119/76
--- NOTE | 2016-11-29 13:44 | Carotid Imaging Report ---
Carotid Duplex Patient Name:Geovani Collazo Order Number:[id number] Procedure Date:11/28/2016 Date:1960Age:56 yrs Gender:Male Rt.BP:140 / 83 mmHgHeart Rate: Location:[facility] Room #: 2NE32 Ruby Rails Developer:Jazmine Krause, [facility] Referring MD:Leigh Guzman UTILITY MANAGER substation operator chief:Chele Cowan DO Reading MD:Ye Chase MD Primary Indications:TIA Risk Factors Yes/No Hypertension Yes Diabetes Yes Hypercholesterolemia Yes Hx of CVA Yes Impressions: Findings: Bilateral carotid system has nonstenotic plaque. Recommendations: After imaging the patient returned to their room. Test completed on 11/28/2016 at 6:10:00 pm. Findings Carotid Duplex: Right: The right proximal common carotid artery has a PSV of 123 cm/s and a EDV of 21 cm/s. The right mid common carotid artery has a PSV of 83 cm/s and a EDV of 21 cm/s. The right distal common carotid artery has a PSV of 67 cm/s and a EDV of 15 cm/s. The right bifurcation has a PSV of 46 cm/s and a EDV of 13 cm/s. The right proximal internal carotid artery has a PSV of 50 cm/s and a EDV of 19 cm/s. The right mid internal carotid artery has a PSV of 89 cm/s and a EDV of 38 cm/s. The right distal internal carotid artery has a PSV of 107 cm/s and a EDV of 42 cm/s. The right eca has a PSV of 92 cm/s and a EDV of 11 cm/s. The right vertebral artery has a PSV of 49 cm/s and a EDV of 11 cm/s. There is antegrade spectral Doppler flow patterns. Left: The left proximal common carotid artery has a PSV of 116 cm/s and a EDV of 20 cm/s. The left mid common carotid artery has a PSV of 72 cm/s and a EDV of 21 cm/s. The left distal common carotid artery has a PSV of 68 cm/s and a EDV of 19 cm/s. There is nonstenotic plaque in the left bifurcation with a PSV of 74 cm/s and a EDV of 22 cm/s. There is smooth plaque. The left proximal internal carotid artery has a PSV of 91 cm/s and a EDV of 26 cm/s. The left mid internal carotid artery has a PSV of 88 cm/s and a EDV of 33 cm/s. The left distal internal carotid artery has a PSV of 91 cm/s and a EDV of 34 cm/s. The left eca has a PSV of 124 cm/s and a EDV of 24 cm/s. The left vertebral artery has a PSV of 47 cm/s and a EDV of 14 cm/s. Prior Study: No prior study available for comparison. Carotid Results Right PSV EDV Assessment Proximal CCA 123 21 Mid CCA 83 21 Distal CCA 67 15 Bifurcation 46 13 Proximal ICA 50 19 Mid ICA 89 38 Distal ICA 107 42 ECA 92 11 Vertebral Artery 49 11 Antegrade Flow Left PSV EDV Assessment Proximal CCA 116 20 Mid CCA 72 21 Distal CCA 68 19 Bifurcation 74 22 Non Stenotic Plaque Proximal ICA 91 26 Mid ICA 88 33 Distal ICA 91 34 ECA 124 24 Vertebral Artery 47 14 Antegrade Flow Ratio's Right ICA/CCA Ratio: 1.29 ICA/CCA Values: 107/83 Left ICA/CCA Ratio: 1.26 ICA/CCA Values: 91/72 Updated by Ye Chase MD on 11/29/2016 1:37:06 PM electronically signed on 11/29/2016 1:37:19 PM with status of Final
--- NOTE | 2016-11-29 14:12 | Discharge Summary ---
<Daron Bryan - Last Filed: 11/29/16 14:08> Date of Encounter: 11/29/16 Time of Encounter: 13:50 - Discharge Diagnosis (1) Numbness and tingling of right face Priority: Primary Status: Acute Comments: Possible TIA. Neurology consulted. Recommended continuing regular dose of ASA and Plavix. MRI brain negative for acute infarct, but did show chronic lacunar infarct in the left thalmus. Patient states numbness, tingling, and facial drooping resolved. No acute findings per carotid doppler or echo. (2) Hypertriglyceridemia Priority: Secondary Status: Acute Comments: In reviewing history patient previously on fenofibrate in addition to low dose Atorvastatin. Triglycerides in Aug 2016 were in the 300s, he reports discontinuing fibrate 1 month ago, his triglyceride level here was 1325. Discussed concern for pancreatitis with elevated Triglyceride level, discussed options for inpatient vs outpatient therapy. Patient prefers outpatient therapy with close follow up with PCP. (3) CAD (coronary artery disease) Priority: Secondary Status: Chronic Comments: Bypass graft noted in 2014 Carotid doppler 11/21: b/l nonstenotic plaque. Echo 11/21: EF40-45%, unchanged from E of 45% in 2014. Continue ASA, statin/fibrate, plavix, VALERIE inhibitor, and beta anthony Qualifiers: Coronary Disease-Associated Artery/Lesion type: [place] artery [place] vs. transplanted heart: [place] heart Associated angina: angina presence unspecified Qualified Code(s): I25.10 - Atherosclerotic heart disease of [place] coronary artery without angina pectoris (4) COPD (chronic obstructive pulmonary disease) Priority: Secondary Status: Chronic Comments: Stable. Bronchodilators prn. Spiriva daily. Qualifiers: COPD type: unspecified COPD Qualified Code(s): J44.9 - Chronic obstructive pulmonary disease, unspecified (5) Diabetes Priority: Secondary Status: Chronic Comments: Poorly controlled with A1C 11.0 this visit. Avg Hgb A1C 10-11 since 2013. Patient states PCP continues to increase insulin, he feels he would benefit from endocrinology referral and diabetic education. This can be further discussed with PCP, Dr. Oquendo. Plan for follow up next week. Qualifiers: Diabetes mellitus type: type 2 Diabetes mellitus complication status: with circulatory complication Diabetes mellitus complication detail: with other circulatory complications Diabetes mellitus group home insulin use: with intermediate designer use Qualified Code(s): E11.59 - Type 2 diabetes mellitus with other circulatory complications; Z79.4 - [employer] (current) use of insulin (6) HTN (hypertension) Priority: Secondary Status: Chronic Comments: Well controlled, current BP 119/76. Continue home medications. Qualifiers: Hypertension type: essential hypertension Qualified Code(s): I10 - Essential (primary) hypertension (7) CKD (chronic kidney disease) stage 3, GFR 30-59 ml/min Priority: Secondary Status: Acute Comments: Stable CKD stage 3, GFR 56. Avoid nephrotoxins. - Discharge Medications Prescriptions: Fenofibrate Nanocrystallized [Tricor] 145 mg PO DAILY #90 tablet Home Medications: Albuterol Sulfate [Albuterol Inhaler] 2 puff IH Q4HR PRN 04/15/15 [History] Alprazolam [Xanax] 0.5 mg PO BID PRN 04/15/15 [History] Cholecalciferol (Vitamin D3) [Vitamin D] 1,000 unit PO QAM 04/15/15 [History] Gabapentin [Neurontin] 300 mg PO HS 04/15/15 [History] Krill Oil/[place]-3/Dha/Epa [Fish Oil with Krill Softgel] 1 each PO DAILY [History] Lisinopril [Zestril] 5 mg PO QAM 04/15/15 [History] Nitroglycerin [Nitrostat] 0.4 mg SL AD PRN 04/15/15 [History] Tiotropium [Spiriva] 18 mcg IH QAM 04/15/15 [History] Ubidecarenone [Co Q-10] 100 mg PO QAM 04/15/15 [History] Aspirin Enteric Coated [Aspirin EC] 81 mg PO DAILY #30 tablet. 04/19/15 [Rx] Clopidogrel [Plavix] 75 mg PO QAM #30 tablet 04/19/15 [Rx] Insulin DETEMIR [Levemir] 40 unit SQ BID #0 04/19/15 [Rx] Isosorbide MONOnitrate (24 HR) [Imdur] 120 mg PO DAILY 30 Days 04/19/15 [Rx] Metoprolol XL (24 HR) Succ [Toprol XL] 100 mg PO DAILY 30 Days 04/19/15 [Rx] Pantoprazole Sodium [Protonix] 40 mg PO DAILY 30 Days 04/19/15 [Rx] Ranolazine [Ranexa] 500 mg PO BID #60 tab.er.12h 04/19/15 [Rx] Albuterol Neb [AccuNeb] 0.63 mg IH Q6H PRN 11/28/16 [History] Atorvastatin [Lipitor] 10 mg PO HS 11/28/16 [History] Fluticasone Propionate Nasal [Flonase] 2 spray NS DAILY 11/28/16 [History] Insulin ASPART [NovoLOG] 35 unit SQ TIDWM 11/28/16 [History] Meclizine HCl [Verticalm] 25 mg PO Q8H PRN 11/28/16 [History] Multivitamin [Multi-Day Vitamins] 1 tab PO DAILY 11/28/16 [History] Venlafaxine HCl [Venlafaxine HCl ER] 37.5 mg PO DAILY 11/28/16 [History] Fenofibrate Nanocrystallized [Tricor] 145 mg PO DAILY #90 tablet 11/29/16 [Rx] Allergies/Adverse Reactions: Allergies atorvastatin [From Lipitor] Adverse Reaction (Verified 04/15/15 13:06) See Comments Patient states he hurts all over and is achy after taking this. Procedures/tests Complete & Pending: Procedures Performed prior 72 hours Category Date Time Status US soft tissue head and neck [US] Routine Exams 11/28/16 15:08 Completed MR head/brain wo con [MR] Routine MRI 11/28/16 13:50 Completed EV carotid duplex imaging BI Stat Y 11/28/16 13:53 Completed EV echocardiogram Stat Y 11/28/16 13:53 Completed Date of admission: 11/28/16 13:43 Primary care physician: Abner Duenas Consults: 11/28/16 14:25 Consult to Neurology [CONS] Routine Consulting Provider: [facility] Reason for Consult: TIA/CVA Call Completed: Yes Discharging clinician: Braxton Lala Anticipated date of discharge: 11/29/16 - Patient Status Disposition: Home, Self-Care Condition: Good Functional capacity at discharge: independent ambulation Overall status at discharge: patient is back to baseline - Discharge Instructions Instructions: Transient Ischemic Attack (DC) Follow Up With: Chele Cowan DO [Primary Care Provider] - 12/04/16 1:45 pm Additional Instructions: Need close follow up with PCP, Dr. Oquendo. Follow up 12/04/16. Seek medical care for new or worsening symptoms, such as return of facial drooping, slurred speech, confusion, weakness, difficulty with balance or walking. - Diet and Activity Activity: increase activity as tolerated Diet: diabetic diet Interval History: Patient states R sided facial numbness, tingling, and weakness has resolved. He denies any acute complaints and states he is ready to return home. Hospital course: Mr. Collazo is a 56 year old male, PMHx of CVA, CAD, diabetes, hypertension, HLD, and CKD who presented to [facility] on 11/28/26 with complaints of worsening right sided facial numbness, tingling, and facial drooping that began the night before admission. No slurred speech or extremity weakness. No vision changes or headaches. No chest pain, palpitation, or shortness of breath. No abdominal pain, nausea, vomiting, or diarrhea. Concerned for CVA vs TIA, stroke workup was initiated. MRI brain negative for acute infarct, but did show chronic lacunar infarct in the left thalamus. Patient states numbness, tingling, and facial drooping resolved today. No acute findings per carotid doppler or echo. Carotid doppler 11/21: b/l nonstenotic plaque. Echo 11/21: EF40-45%, unchanged from EF of 45% in 2014. Patient on ASA, statin, plavix, VALERIE inhibitor, and beta anthony. Poorly controlled Diabetes noted with A1C 11.9, avg Hgb A1C 10-11 since 2013. Patient states PCP continues to increase insulin, he feels he would benefit from endocrinology referral and diabetic education. This can be further discussed with PCP, Dr. Oquendo. In reviewing history patient previously on fenofibrate in addition to low dose Atorvastatin. Triglycerides in Aug 2016 were in the 300s, he reports discontinuing fibrate 1 month ago, his triglyceride level today was 1325. Discussed concern for pancreatitis with elevated Triglyceride level, discussed options for inpatient vs outpatient therapy. Patient currently stable, vitals good, and no acute neurological findings; at this time he prefers outpatient therapy with close follow up with PCP; will restart fibrate with statin. - Time Spent with Patient Total time spent providing and/or coordinating discharge services: Greater than 30 minutes (40m) - Constitutional Vitals: Temp Pulse Resp BP Pulse Ox 98 F 86 16 119/76 95 11/29/16 10:50 11/29/16 10:50 11/29/16 10:50 11/29/16 10:50 11/29/16 07:55 General appearance: Present: cooperative, A&O X 3, no acute distress, answers questions appropriately - Head Head exam: Present: atraumatic, normocephalic - Eye Eye exam: Present: conjuntiva pink, sclera anicteric - ENT ENT exam: Present: mucous membranes moist - Neck Neck exam general surgery: Present: full ROM - Respiratory Respiratory exam: Present: CTAB - Cardiovascular Cardiovascular exam: Present: tachycardia - GI/Abdominal GI/Abdominal exam: Present: distended. Absent: firm, guarding, tenderness - Extremities Exam Extremities exam: Absent: pedal edema, tenderness - Neurological Exam Neurological exam: Present: alert, oriented X3, no focal deficits, strengths equal and symetr throughout. Absent: facial droop, speech deficit - Psychiatric Psychiatric exam: Present: normal affect, normal mood - Skin Skin exam: Present: dry, normal color, warm. Absent: cyanosis, rash <Dai,Braxton P - Last Filed: 11/29/16 17:59> Date of Encounter: 11/29/16 Procedures/tests Complete & Pending: Procedures Performed prior 72 hours Category Date Time Status US soft tissue head and neck [US] Routine Exams 11/28/16 15:08 Completed MR head/brain wo con [MR] Routine MRI 11/28/16 13:50 Completed EV carotid duplex imaging BI Stat Y 11/28/16 13:53 Completed EV echocardiogram Stat Y 11/28/16 13:53 Completed Date of admission: 11/28/16 13:43 Primary care physician: Abner Duenas Consults: 11/28/16 14:25 Consult to Neurology [CONS] Routine Consulting Provider: [facility]rology [facility] Reason for Consult: TIA/CVA Call Completed: Yes Hospital course: Mr. Collazo is a 56 year old male - Time Spent with Patient Total time spent providing and/or coordinating discharge services: - Constitutional Vitals: Temp Pulse Resp BP Pulse Ox 98 F 86 16 119/76 95 11/29/16 10:50 11/29/16 10:50 11/29/16 10:50 11/29/16 10:50 11/29/16 07:55 - Attending Attestation I examined this patient and my medical decision-making was reviewed with the DIRECTOR CLINICAL DATA/PA/Advanced Practice Nurse/Resident Physician. I agree with the documented findings, disposition and treatment plan as described except to the extent set forth below. patient stopped finofibrate last 1 month please see above d/c summary
== END 2016-11-29 15:26 | disposition home or self-care (01) ==
LOC: EMEROO 11:55 → 2NENU 11:55
PROVIDERS: ADMIT Registered Nurse; ATTEND Internal Medicine